=== PATIENT | male | born 1970 | race Two or more races ===

== ENCOUNTER 2022-04-22 07:03 | Emergency (ER) | payer OTHER ==
[~2022-04-22] VITALS: Ht 205.7 cm; Wt 104.5 kg
[2022-04-22 07:04] VITALS: BP 155/94
[2022-04-22] MEDS ORDERED: AMLO2.5T96 PO (07:56)
== END 2022-04-22 08:11 | disposition home or self-care (01) ==
LOC: EMS 07:04
DX: I10 Essential (primary) hypertension (principal); F17.210 Nicotine dependence, cigarettes, uncomplicated
CPT/HCPCS: 99283; Z7502

== ENCOUNTER 2022-05-17 06:56 | Emergency (ER) | payer OTHER ==
[~2022-05-17] VITALS: Ht 175.3 cm; Wt 86.0 kg
[2022-05-17 06:58] VITALS: BP 167/112
[2022-05-17] MEDS ORDERED: CloNIDine HCL 0.1 MG TABLET PO ONE (07:30)
[2022-05-17] MEDS ORDERED: AmLODIPine BESYLATE 5 MG TABLET PO ONE (07:30)
[2022-05-17] MEDS ORDERED: PERMETHRIN 5% 60 GM CREAM TP ONE (07:30)
== END 2022-05-17 08:59 | disposition left against medical advice (07) ==
LOC: EMS 06:58
DX: R42 Dizziness and giddiness (principal); B85.0 Pediculosis due to Pediculus humanus capitis; I10 Essential (primary) hypertension; F17.210 Nicotine dependence, cigarettes, uncomplicated; Z59.00 Homelessness unspecified; Z91.14 Patient's other noncompliance with medication regimen
CPT/HCPCS: 93005; 99283

== ENCOUNTER 2022-05-26 09:20 | Emergency (ER) | payer OTHER ==
[~2022-05-26] VITALS: Ht 175.3 cm; Wt 115.5 kg
[2022-05-26 09:54] VITALS: BP 163/104
[2022-05-26 12:17] LABS: BASOPHILS % (AUTO) 0.5 % (0.0-2.0); EOSINOPHILS % (AUTO) 4.8 % (1.0-6.0); HEMATOCRIT 39.3 % (41-53); HEMOGLOBIN 12.7 g/dL (13.5-17.5); LYMPHOCYTES # (AUTO) 1.7 K/uL (1.0-4.8); LYMPHOCYTES % (AUTO) 18.7 % (22.0-44.0); MEAN CORPUSCULAR HEMOGLOBIN 26.6 pg (26.0-34.0); MEAN CORPUSCULAR HGB CONC 32.3 G/dL (31.0-37.0); MEAN CORPUSCULAR VOLUME 82 fL (80-100); MONOCYTES # (AUTO) 0.8 K/uL (0.1-1.0); NEUTROPHILS # (AUTO) 6.2 K/uL (1.8-7.7); PLATELET COUNT (AUTO) 222 K/uL (150-450); RED BLOOD CELL COUNT(AUTO) 4.78 MIL/uL (4.50-5.90); RED CELL DISTRIBUTION WIDTH 15.1 % (11.5-14.5)
[2022-05-26 12:32] LABS: PROTHROMBIN TIME 10.9 SEC (9.4-11.6)
[2022-05-26 12:33] LABS: BILIRUBIN,TOTAL 0.3 mg/dL (0.1-1.0); CALCIUM, TOTAL 8.4 mg/dL (8.8-10.5); CREATININE 1.39 mg/dL (0.60-1.30); TOTAL PROTEIN, SERUM 7.4 g/dL (6.4-8.2)
[2022-05-26 12:38] LABS: POTASSIUM 2.8 mmol/L (3.5-5.1)
[2022-05-26] MEDS ORDERED: POTASSIUM CHLORIDE 20 MEQ ER TABLET PO ONE (13:15)
== END 2022-05-26 14:39 | disposition left against medical advice (07) ==
LOC: EMS 09:20
DX: I10 Essential (primary) hypertension (principal); R07.89 Other chest pain; F17.210 Nicotine dependence, cigarettes, uncomplicated
CPT/HCPCS: 71045; 80053; 83880; 84484; 85025; 85610; 85730; 93005; 99285; 36415-L1; 36415-TC

== ENCOUNTER 2022-07-13 07:03 | Emergency (ER) | payer OTHER ==
[~2022-07-13] VITALS: Ht 175.3 cm; Wt 81.8 kg
[2022-07-13 07:05] VITALS: BP 158/115
== END 2022-07-13 09:03 | disposition left against medical advice (07) ==
LOC: EMS 07:06
DX: I10 Essential (primary) hypertension (principal); Z53.21 Procedure and treatment not carried out due to patient leaving prior to being seen by health care provider

== ENCOUNTER 2022-08-17 13:08 | Emergency (ER) | payer OTHER ==
[~2022-08-17] VITALS: Ht 175.3 cm; Wt 81.8 kg
[2022-08-17 13:22] VITALS: BP 143/65
== END 2022-08-17 16:35 | disposition left against medical advice (07) ==
LOC: EMS 13:09
DX: Z53.21 Procedure and treatment not carried out due to patient leaving prior to being seen by health care provider (principal)
CPT/HCPCS: 93005

== ENCOUNTER 2022-08-22 06:36 | Emergency (ER) | payer OTHER ==
[~2022-08-22] VITALS: Ht 175.3 cm; Wt 81.8 kg
[2022-08-22 06:38] VITALS: BP 166/112
[2022-08-22 07:34] LABS: BASOPHILS % (AUTO) 0.9 % (0.0-2.0); EOSINOPHILS % (AUTO) 1.6 % (1.0-6.0); HEMATOCRIT 36.5 % (41-53); HEMOGLOBIN 11.2 g/dL (13.5-17.5); LYMPHOCYTES # (AUTO) 1.4 K/uL (1.0-4.8); LYMPHOCYTES % (AUTO) 17.5 % (22.0-44.0); MEAN CORPUSCULAR HEMOGLOBIN 24.1 pg (26.0-34.0); MEAN CORPUSCULAR HGB CONC 30.6 G/dL (31.0-37.0); MEAN CORPUSCULAR VOLUME 79 fL (80-100); MONOCYTES # (AUTO) 0.8 K/uL (0.1-1.0); MONOCYTES % (AUTO) 10.1 % (2.0-9.0); NEUTROPHILS # (AUTO) 5.8 K/uL (1.8-7.7); NEUTROPHILS % (AUTO) 69.9 % (40.0-70.0); PLATELET COUNT (AUTO) 309 K/uL (150-450); RED BLOOD CELL COUNT(AUTO) 4.63 MIL/uL (4.50-5.90); RED CELL DISTRIBUTION WIDTH 17.4 % (11.5-14.5)
[2022-08-22 07:47] LABS: CREATININE 1.79 mg/dL (0.60-1.30)
[2022-08-22] MEDS ORDERED: POTASSIUM CHLORIDE 20 MEQ ER TABLET PO ONE (08:00)
[2022-08-22 08:12] LABS: ALBUMIN 2.7 g/dL (3.4-5.0); BILIRUBIN,TOTAL 1.1 mg/dL (0.1-1.0); TOTAL PROTEIN, SERUM 7.9 g/dL (6.4-8.2)
[2022-08-22] MEDS ORDERED: FUROSEMIDE 20 MG/2 ML VIAL IVP ONE (08:15)
[2022-08-22] MEDS ORDERED: HydrALAZINE HCL 20 MG/ML VIAL IVP ONE (08:15)
== END 2022-08-22 09:28 | disposition left against medical advice (07) ==
LOC: EMS 06:37
DX: I11.0 Hypertensive heart disease with heart failure (principal); I50.9 Heart failure, unspecified; F17.210 Nicotine dependence, cigarettes, uncomplicated; I16.1 Hypertensive emergency
CPT/HCPCS: 99291; 96374; 96375; 80053; 82550; 83880; 84484; 85025; 36415; 71045; 93005; G0480; J1940; J0360